=== PATIENT | female | born 1990 | race Caucasian/White ===

== ENCOUNTER 2016-05-26 13:17 | Inpatient (IN) ==
[2016-05-26] MEDS ORDERED: miSOPROStol 25 MCG TABLET VG PRN (13:21)
[2016-05-26] MEDS ORDERED: Ondansetron 4 MG/2 ML VIAL IVP PRN ×2 (13:21→20:47)
[2016-05-26] MEDS ORDERED: *HR* FentaNYL (PF) 100 MCG/2 ML VIAL IVP PRN (13:21)
[2016-05-26] MEDS ORDERED: Naloxone 0.4 MG/ML INJ IVP PRN (13:21)
[2016-05-26] MEDS ORDERED: *HR* Nalbuphine 20 MG/ML AMPUL IVP PRN (13:21)
[2016-05-26] MEDS ORDERED: Famotidine 20 MG/2 ML VIAL IVP PRN (13:21)
[2016-05-26] MEDS ORDERED: Ringers Solution, Lactated 1,000 ML IVC SCH ×2 (13:30→21:00)
[2016-05-26 13:55] LABS: Basophils % 0.2 %; Eosinophils # 0.1 K/mcL (0.0-0.6); Eosinophils % 0.7 %; Hematocrit 36.5 % (35.3-44.9); Hemoglobin 11.2 g/dL (11.5-15.4); Immature Granulocytes % 0.7 % (0-4); Immature Platelets 14.9 % (1.1-6.1); Lymphocytes % 18.7 %; Mean Corpuscular HGB Conc 30.7 g/dL (31.6-35.5); Mean Corpuscular Hemoglobin 23.2 pg (28.0-33.3); Mean Corpuscular Volume 75.6 fL (83.0-100.0); Mean Platelet Volume 12.1 fL (9.4-12.4); Monocytes # 0.8 K/mcL (0.0-1.3); Monocytes % 7.4 %; Neutrophils # 7.8 K/mcL (1.6-8.9); Platelet Count 205 K/mcL (140-400); Red Blood Count 4.83 M/mcL (3.82-4.97); Red Cell Distribution Width 16.9 % (11.5-14.5); Segmented Neutrophils % 72.3 %
--- NOTE | 2016-05-26 14:14 | OB/GYN History & Physical ---
Date of Encounter: 05/26/16 Time of Encounter: 14:05 Assessment and Plan (1) 40 weeks gestation of Current visit: Yes Status: Acute (2) Oligohydramnios in morales in third trimester Current visit: Yes Status: Acute induction of labor with cytotec Continuous monitoring, GBS negative Epidural as requested anticipate History of Present Illness Chief complaint: induction of labor HPI: Ms. Ramirez is a 25 year old female here for induction of labor due to oligohydramnios CAMILA 5. complicated by obesity and smoking until 5th month of . No complaints good movement, denies vaginal bleeding or leaking of fluid. Pt planning epidural, Family is here as support system. Labs: A positive, GBS negative, Rubella non immune, all other serologies negative. Past Med Surg Social Fam HX - Past Medical History Medical history: no medical history Psychiatric history: no psych history - Social History Smoking Status: Current every day smoker Alcohol use: none Drug use: none - Family History Father Adopted: [place]: Brain Living Status: Still Living Hx Family Cardiac Disorders: No Hx Family Respiratory Disorders: No Hx Family Cancer: No Hx Family GI Disorders: No Hx Family Genitourinary Disorders: No Hx Family Endocrine Disorder: No Hx Family Musculoskeletal Disorders: No Hx Family Neuromuscular Disorders: No Hx Family Neurologic Disorders: No Hx Family HEENT Disorders: No Hx Family Autoimmune Disorders: No Hx Family Reproductive Disorders: No Hx Family Psychosocial Disorders: No Hx Family Medical Disorders: No Obstetrical History - Pregnancies : 1 Para: 0 Term: 0 : 0 Ab's: 0 Livin Medications and Allergies Pnv19/Iron Bd Hc,S-P/Folic/Om3 [Pr 400 EC Combo Pack] 1 each PO DAILY #30 cmbpkgdrcp 09/18/15 [Rx] Allergies No Known Allergies Allergy (Verified 09/18/15 12:12) Review of System OB All systems PM: reviewed and no additional remarkable complaints except as stated Exam - Constitutional Constitutional: no acute distress, morbidly obese - Neck Neck exam: full ROM - Lungs Respiratory exam: CTAB - Cardiovascular Cardiovascular exam: RRR, +S1, +S2 - Abdomen Abdomen: Present: bowel sounds normal, gravid, non tender - Uterus Uterus exam: Present: normal size Results Result Diagrams: 05/26/16 13:45 Abnormal lab results Hgb 11.2 g/dL (11.5-15.4) L 05/26/16 13:45 MCV 75.6 fL (83.0-100.0) L 05/26/16 13:45 MCH 23.2 pg (28.0-33.3) L 05/26/16 13:45 MCHC 30.7 g/dL (31.6-35.5) L 05/26/16 13:45 RDW 16.9 % (11.5-14.5) H 05/26/16 13:45 Immature Plt Fraction 14.9 % (1.1-6.1) H 05/26/16 13:45 All other labs normal. - VTE Reasons for not Prescribing Prophylaxis: Medical contraindication
--- NOTE | 2016-05-26 17:51 | OB Labor Progress Note ---
Date of Encounter: 05/26/16 Time of Encounter: 17:45 Labor Progress Note - Subjective Subjective: went into patient room because had a prolonged decel for up to 6 mins at least, she was flipped from side to side to side, fluids started and just as I was about to call a C section , the tracing recovered. I counseled the patient that if she has a decel again, I will be doing a C section and explained why that was necessary. She agreed. Cont monitoring strip.
[2016-05-26] MEDS ORDERED: Metoclopramide 10 MG/2 ML VIAL IVP ONE (17:58)
[2016-05-26] MEDS ORDERED: EPHEDrine 50 MG/ML VIAL ONE (18:03)
[2016-05-26] MEDS ORDERED: *HR* Morphine Sulfate/PF 5 MG/10 ML AMPUL ONE (18:03)
[2016-05-26] MEDS ORDERED: *HR* FentaNYL (PF) 100 MCG/2 ML VIAL ONE (18:03)
[2016-05-26] MEDS ORDERED: Water for inj. (sterile) 10 ML IV ONE (18:05)
[2016-05-26] MEDS ORDERED: *HR* Oxytocin 10 UNIT/ML VIAL IM ONE (18:10)
--- NOTE | 2016-05-26 18:16 | Anesthesia Evaluation PreOp ---
Date of Encounter: 05/26/16 Time of Encounter: 17:45 - Past History Planned Operation: c section Cardiac History: Denies any Significant Hx Pulmonary History: Former smoker, Asthma (uses rescue inhaler infrequently. Quit smoking when learned of .) ACCOUNTANT TAX History: Denies Any Significant HX Other Medical History: GERD, Other (morbid obesity.) Anesthesia History: No Prior Anesthetic Complications, Past Anesthesia ( tonsillectomy at age 14.) : Yes Alcohol Use: none Drug use: none Medications and Allergies Pnv19/Iron Bd Hc,S-P/Folic/Om3 [Pr 400 EC Combo Pack] 1 each PO DAILY #30 cmbpkgdrcp 09/18/15 [Rx] Allergies No Known Allergies Allergy (Verified 09/18/15 12:12) - Meds/Allergy Pre-op Review Medications Reviewed: Yes Allergies Reviewed: Yes Beta Blockers on Current Med List: No Anesthesia Results - Labs 05/26/16 13:45 Anesthesia Exam O2 Sat Height 1.6 m Height 1.6 m Weight 132.8 kg Weight 132.8 kg vss Height: 5'3" Weight: 133 kg NPO (# of Hours): 6. ate full meal at noon. Pain Scale: 3 Pain Scale Used: Numeric (1 - 10) - HEENT Pupil (Motor): Pupils equal Mallampati: III Teeth: Normal Oral Opening: Greater than 3 - ACCOUNTANT TAX LOC: Oriented ACCOUNTANT TAX Motor: Normal RUE, Normal LUE, Normal RLE, Normal LLE, Normal Face ACCOUNTANT TAX Sensory: Normal: RUE, LUE, RLE, LLE, Face - Cardiac Rhythm: Regular - Pulmonary Breath Sounds: bilateral Clear Respiratory Effort: Symmetrical Anesthesia Assess/Plan ASA Score: 3 Modified Sally Scale for Level of Consciousness: Cooperative, oriented, and tranquil Anesthetic Plan: Regional Monitoring Plan: Standard Monitors Recovery Plan: PACU
[2016-05-26] MEDS ORDERED: Oxytocin 20 units/ LR 1000 mL 20 UNIT/1,000 ML BAG IVC ONE (18:29)
[2016-05-26] MEDS ORDERED: *HR* Promethazine 25 MG/ML VIAL IVP PRN (19:30)
[2016-05-26] MEDS ORDERED: Ondansetron 4 MG/2 ML VIAL IVP ONE (19:30)
[2016-05-26] MEDS ORDERED: Acetaminophen IV 1,000 MG/100 ML INFUS..BTL IVPB ONE (19:32)
--- NOTE | 2016-05-26 20:17 | OB/GYN Procedure Note ---
Section - Date of procedure: 05/26/16 Preop diagnosis: category 2 FHT tracing Post-op diagnosis: same Procedure: primary low transverse Surgeon: Wendy Sterling Estimated blood loss (cc): 300 Anesthesia Type: Spinal section complications: none Disposition: L&D Recovery Room Specimens: Placenta - (s) A Infant Delivery Date: 05/26/16 Delivery Time: 19:15 Presentation: vertex Gender: Male Viability: Viable Pounds: 7 Ounces: 0 Gram Weight: 3.185 kg at 1 minute: 8 at 5 minutes: 9 Shoulder Dystocia: not encountered - Narrative Narrative: Patient was brought to the operating room and given satisfactory spinal anesthesia. The abdomen was prepped and draped in a sterile fashion. A Pfannenstiel incision was made and carried sharply down to the level of fascia. The fascia was incised transversely. The fascia was dissected away from the underlying rectus muscles. With sharp and blunt dissection, rectus muscles were divided in midline. The perineum was entered bluntly. The incision was carried vertically with scissors. Transverse incision was made across the bladder peritoneum. The bladder was dissected away from the underlying lower uterine segment. Bladder retractor was placed to protect the bladder. The lower uterine segment was entered sharply with a scalpel. Incision was manually extended. Meconium stained amniotic fluid was encountered. The 's head was pulled up and delivered easily as were the shoulders and body. The mouth and oropharynx were suctioned. The cord was clamped and cut. The was passed off to the waiting systems technologist in satisfactory condition. APGARS 8/9. Placenta was extracted completely and found to be intact. Uterus was explored and found to be empty. Uterus was delivered through the abdominal incision and massaged vigorously. Intravenous Pitocin was administered. Clamps were placed about the margins of the uterine incision, which was closed primarily with a running locking stitch of 0 Vicryl with adequate hemostasis. Secondary running locking stitch was placed for extra strength to the wound. Cul-de-sac and gutters were suctioned vigorously. The uterus was returned to its proper anatomic position in the abdomen. The fascia was closed with a simple running stitch of 0 vicryl. The skin was closed with running subcuticular of 4-0 vicryl. Uterus was expressed of its contents. Patient was brought to the recovery room in satisfactory condition. There were no complications. There was 300 cc of blood loss. All sponge, needle, and instrument counts were reported to be correct.
[2016-05-26] MEDS ORDERED: Simethicone 80 MG TAB.CHEW PO PRN (20:47)
[2016-05-26] MEDS ORDERED: Metoclopramide 10 MG/2 ML VIAL IVP PRN (20:47)
[2016-05-26] MEDS ORDERED: Sennosides 8.6 MG TABLET PO PRN (20:47)
[2016-05-26] MEDS ORDERED: Oxytocin 20 units/ LR 1000 mL 20 UNIT/1,000 ML BAG IV SCH (21:00)
--- NOTE | 2016-05-26 21:15 | Anesthesia Evaluation Post Op ---
Date of Encounter: 05/26/16 Time of Encounter: 21:08 - Vital Signs Vital Signs: vss - Lungs Lungs: Clear Ascult./Percussion - Airway Airway: Non-obstructed - Cardiovascular Regular Rate - Mental Status Mental Status: Alert & Oriented, Answers Appropriately - Pain Pain Scale: 0 Pain Scale used: Numeric (1 - 10) - Nausea Vomiting Nausea Vomiting: Not Present - Hydration Hydration: NPO, Arango catheter - Discharge PostOp Status: Transfer Patient to floor
[2016-05-26] MEDS ORDERED: *HR* Morphine 2 MG/ML SYRINGE IVP PRN (21:16)
[2016-05-26] MEDS ORDERED: *HR* HYDROmorphone (PF) 1 MG/ML SYRINGE IVP PRN (21:16)
[2016-05-26] MEDS: Ibuprofen 600 MG TABLET PO PRN (23:10)
[2016-05-27] MEDS: *HR* OxyCODONE/APAP 5/325 TABLET PO PRN ×3 (04:53→22:48)
[2016-05-27 05:06] LABS: Basophils % 0.2 %; Eosinophils % 0.7 %; Hemoglobin 10.1 g/dL (11.5-15.4)
[2016-05-27 05:07] LABS: Eosinophils # 0.1 K/mcL (0.0-0.6); Hematocrit 32.9 % (35.3-44.9); Immature Platelets 14.4 % (1.1-6.1); Mean Corpuscular HGB Conc 30.7 g/dL (31.6-35.5); Mean Corpuscular Hemoglobin 23.1 pg (28.0-33.3); Mean Corpuscular Volume 75.3 fL (83.0-100.0); Mean Platelet Volume 12.8 fL (9.4-12.4); Platelet Count 176 K/mcL (140-400); Red Blood Count 4.37 M/mcL (3.82-4.97); Red Cell Distribution Width 16.9 % (11.5-14.5); Segmented Neutrophils % 66.9 %
[2016-05-27 05:08] LABS: Immature Granulocytes % 0.6 % (0-4); Lymphocytes # 2.3 K/mcL (0.6-4.6); Lymphocytes % 24.8 %; Monocytes # 0.6 K/mcL (0.0-1.3); Monocytes % 6.8 %; Neutrophils # 6.3 K/mcL (1.6-8.9)
[2016-05-27 05:24] LABS: Platelet Estimate Normal (Normal)
--- NOTE | 2016-05-27 08:28 | OB/GYN Progress Note ---
Date of Encounter: 05/27/16 Time of Encounter: 08:25 - Assessment and Plan (1) 40 weeks gestation of Current Visit: Yes Status: Acute (2) Oligohydramnios in morales in third trimester Current Visit: Yes Status: Resolved induction of labor with cytotec Continuous monitoring, GBS negative Epidural as requested anticipate (3) delivery delivered Current Visit: Yes Status: Acute stable in . Continue current management and progress to milestones. Subjective - Subjective Interval history: Pt states feel well. Pain well managed on po pain medication. Pt has been up and standing by bedside, - flatus, tolerating po diet. . Patient reports: appetite normal, pain well controlled, ambulating normally [place]: doing well Objective - Vital Signs Latest vital signs: Vital Signs Temp Pulse Pulse Resp BP Pulse Ox 05/27/16 04:47 98.2 F 73 16 126/76 98 05/27/16 01:45 98.0 F 90 16 125/65 98 05/27/16 00:40 98.2 F 70 16 115/75 98 05/26/16 23:30 98.0 F 61 16 134/63 97 05/26/16 22:47 97.8 F 66 66 16 132/69 98 05/26/16 22:30 98.2 F 56 16 134/84 100 Intake and Output 05/26/16 05/27/16 05/27/16 23:59 07:59 15:59 Intake Total 0 / 0 Output Total 600 / 600 Balance -600 / -600 Intake: Oral 0 / 0 Output: Catheter 600 / 600 Other: Weight 130 kg 128.6 kg Patient Weight 05/27/16 23:59 Weight 128.6 kg - Exam Lungs: bilateral: normal Chest: Normal S1, Normal S2 Extremities: Present: normal Abdomen: Present: normal appearance, soft Incision: Present: dressed Uterus: Present: firm - Labs Labs: Laboratory Results - last 24 hr 05/26/16 05/27/16 13:45 04:40 WBC 10.7 9.4 RBC 4.83 4.37 Hgb 11.2 L 10.1 L Hct 36.5 32.9 L MCV 75.6 L 75.3 L MCH 23.2 L 23.1 L MCHC 30.7 L 30.7 L RDW 16.9 H 16.9 H Plt Count 205 176 MPV 12.1 12.8 H Immature Gran % 0.7 0.6 Seg Neutrophils % 72.3 66.9 Lymphocytes % 18.7 24.8 Monocytes % 7.4 6.8 Eosinophils % 0.7 0.7 Basophils % 0.2 0.2 Neutrophils # 7.8 6.3 Lymphocytes # 2.0 2.3 Monocytes # 0.8 0.6 Eosinophils # 0.1 0.1 Basophils # 0.0 0.0 Platelet Estimate Normal Immature Plt Fraction 14.9 H 14.4 H
[2016-05-27] MEDS: Ibuprofen 600 MG TABLET PO PRN ×2 (09:48→18:04)
[2016-05-27] MEDS: Prenatal Vit/FA 1 EACH TABLET PO SCH (09:48)
[2016-05-28] MEDS: Ibuprofen 600 MG TABLET PO PRN ×2 (04:02→13:27)
[2016-05-28] MEDS: *HR* OxyCODONE/APAP 5/325 TABLET PO PRN (08:26)
[2016-05-28] MEDS: Prenatal Vit/FA 1 EACH TABLET PO SCH (08:26)
[2016-05-28] MEDS ORDERED: Measles/Mumps/Rubella Vacc 0.5 ML VIAL SQ ONE (08:40)
[2016-05-28 08:55] VITALS: BP 138/85
--- NOTE | 2016-05-28 09:11 | Discharge Summary ---
Date of Encounter: 05/28/16 Time of Encounter: 09:08 - Discharge Diagnosis (1) delivery delivered Priority: Primary Status: Acute Comments: Pt meeting post-op milestones. (2) Obesity compl pregn//puerperp Priority: Secondary Status: Chronic Comments: Pt instructed on incision care at length. - Discharge Medications Prescriptions: OxyCODONE/APAP 5/325 [Percocet 5/325 MG] 1 each PO Q4HR PRN #30 tablet PRN Reason: Moderate pain 4-6 Ibuprofen [Motrin] 600 mg PO Q6HR PRN #60 tablet PRN Reason: Cramping Docusate [Colace] 100 mg PO BID #60 capsule Home Medications: Pnv19/Iron Bd Hc,S-P/Folic/Om3 [Pr Reji 400 EC Combo Pack] 1 each PO DAILY #30 [id number] 09/18/15 [Rx] Docusate [Colace] 100 mg PO BID #60 capsule 05/28/16 [Rx] Ibuprofen [Motrin] 600 mg PO Q6HR PRN #60 tablet 05/28/16 [Rx] OxyCODONE/APAP 5/325 [Percocet 5/325 MG] 1 each PO Q4HR PRN #30 tablet 05/28/16 [Rx] Simethicone [Gas-X] 80 mg PO TID PRN #0 tab.chew 05/28/16 [Rx] Allergies/Adverse Reactions: Allergies No Known Allergies Allergy (Verified 09/18/15 12:12) Data Procedures and tests throughout hospitalization: Laboratory Tests 05/26/16 05/27/16 13:45 04:40 WBC 10.7 9.4 RBC 4.83 4.37 Hgb 11.2 L 10.1 L Hct 36.5 32.9 L MCV 75.6 L 75.3 L MCH 23.2 L 23.1 L MCHC 30.7 L 30.7 L RDW 16.9 H 16.9 H Plt Count 205 176 MPV 12.1 12.8 H Immature Gran % 0.7 0.6 Seg Neutrophils % 72.3 66.9 Lymphocytes % 18.7 24.8 Monocytes % 7.4 6.8 Eosinophils % 0.7 0.7 Basophils % 0.2 0.2 Neutrophils # 7.8 6.3 Lymphocytes # 2.0 2.3 Monocytes # 0.8 0.6 Eosinophils # 0.1 0.1 Basophils # 0.0 0.0 Platelet Estimate Normal Immature Plt Fraction 14.9 H 14.4 H Date of admission: 05/26/16 13:17 Primary care physician: PCP NO Discharging clinician: Nicolette Maurer Anticipated date of discharge: 05/28/16 - Patient Status Disposition: Home, Self-Care Condition: Good Functional capacity at discharge: independent ambulation Overall status at discharge: patient is progressing back to baseline - Discharge Instructions Follow Up With: MAXINE,PCP [Primary Care Provider] - Rasheed Klein MD [Partnered Physician] - - Diet and Activity Activity: increase activity as tolerated Diet: advance to your usual diet Hospital Course Reason for admission: induction of labor Delivery: section Episiotomy: none Laceration: none Other procedures: none complications: none Discharge diagnosis: IUP at term delivered baby: male Hospital course: - Date of procedure: 05/26/16 Preop diagnosis: category 2 FHT tracing Post-op diagnosis: same Procedure: primary low transverse Surgeon: Wendy Sterling Estimated blood loss (cc): 300 Anesthesia Type: Spinal section complications: none Disposition: L&D Recovery Room Specimens: Placenta - (s) Infant A Infant Delivery Date: 05/26/16 Infant Delivery Time: 19:15 Presentation: vertex Gender: Male Viability: Viable Pounds: 7 Ounces: 0 Gram Weight: 3.185 kg at 1 minute: 8 at 5 minutes: 9 Shoulder Dystocia: not encountered Time Attestation: Total time spent providing and/or coordinating discharge services: Time Spent: Less than 30 minutes - VTE Reasons for not Prescribing Prophylaxis: Medical contraindication Documentation of Mechanical Device: Intermittent pneumatic compression device Exam - Constitutional Vitals: Temp Pulse Resp BP Pulse Ox 98.2 F 86 16 138/85 99 05/28/16 08:15 05/28/16 08:15 05/28/16 08:15 05/28/16 08:15 05/28/16 08:15 General appearance IM: A&O X 3, morbidly obese, pleasant, no acute distress - Respiratory Respiratory exam: Present: CTAB - Cardiovascular Cardiovascular exam IM: Present: RRR, +S1, +S2 - GI/Abdominal GI/Abdominal exam IM: soft, no peritoneal signs Incision: dry (some mild bruising noted above incision, no s/sx infection), intact - Rectal Rectal exam: deferred - Uterine Tone: Firm - Extremities Exam Extremities exam IM: Present: pedal edema (2+ edema bilaterally, no redness or warmth) - Neurological Exam Neurological exam: normal gait, oriented X3 - Psychiatric Additional comments: reports good mood - Other Additional findings: OARRS reviewed
== END 2016-05-28 13:00 | disposition home or self-care (01) | DRG 540 ==
LOC: 1NENULAB → OBSVTOIN 13:17 → 1NENUOBS 22:58
PROVIDERS: ADMIT Student in an Organized Health Care Education/Training Program; ATTEND Student in an Organized Health Care Education/Training Program

== ENCOUNTER 2017-03-27 19:14 | Inpatient (IN) ==
[2017-03-27 20:08] LABS: Bilirubin,Urine Negative (Negative); Blood,Urine Negative (Negative); Clarity,Urine Clear (Clear); Color,Urine Yellow (Yellow); Glucose,Urine (UA) Normal (Normal); Ketones,Urine Negative (Negative); Leukocyte Esterase,Urine Negative (Negative); Nitrite,Urine Negative (Negative); Protein,Urine Trace mg/dL (Neg-Trace); Specific Gravity,Urine 1.023 (1.010-1.025); Urobilinogen,Urine Normal (Normal)
[2017-03-27 20:10] LABS: Bacteria,Urine Few per hpf (None-Few); Hyaline Casts,Urine None Seen per lpf (None-Few); RBC,Urine 0-3 per hpf (0-3); Squamous Epithelial Cell,Urine Many per lpf (None-Few)
[2017-03-27 20:14] LABS: Amphetamine Screen,Urine Negative ng/mL (Cutoff=1000); Barbiturate Screen,Urine Negative ng/mL (Cutoff=200); Benzodiazepines Screen,Urine Negative ng/mL (Cutoff=200); Cannabinoid Screen,Urine Negative ng/mL (Cutoff = 50); Cocaine Screen,Urine Negative ng/mL (Cutoff= 300); Opiate Screen,Urine Negative ng/mL (Cutoff=300); Phencyclidine Screen,Urine Negative ng/mL (Cutoff=25)
[2017-03-27 20:34] LABS: Hemoglobin 10.9 g/dL (11.5-15.4)
[2017-03-27 20:35] LABS: Basophils % 0.4 %; Eosinophils # 0.2 K/mcL (0.0-0.6); Eosinophils % 2.8 %; Hematocrit 37.1 % (35.3-44.9); Immature Granulocytes % 0.7 % (0-4); Lymphocytes % 24.8 %; Mean Corpuscular HGB Conc 29.4 g/dL (31.6-35.5); Mean Corpuscular Hemoglobin 21.5 pg (28.0-33.3); Mean Platelet Volume 10.5 fL (9.4-12.4); Monocytes # 0.6 K/mcL (0.0-1.3); Monocytes % 7.2 %; Neutrophils # 5.3 K/mcL (1.6-8.9); Platelet Count 275 K/mcL (140-400); Red Blood Count 5.08 M/mcL (3.82-4.97); Red Cell Distribution Width 17.2 % (11.5-14.5); Segmented Neutrophils % 64.1 %
[2017-03-27 20:45] LABS: Acetaminophen < 1.0 mcg/mL (10-30); BUN/Creatinine Ratio 11 (6-26); Blood Urea Nitrogen 8 mg/dL (6-20); Calcium 8.8 mg/dL (8.6-10.3); Carbon Dioxide 24 mEq/L (23-29); Chloride 106 mEq/L (98-107); Ethanol < 10 mg/dL (0-10); Glucose 102 mg/dL (70-105); Osmolality,Calculated 281 (280-300); Potassium 3.9 mEq/L (3.5-5.1); Salicylate < 5.0 mg/dL (15.0-30.0); Sodium 136 mEq/L (136-145); eGFR For African Americans > 60 (> 60); eGFR For Non-African Americans > 60 (> 60)
[2017-03-27 21:04] LABS: Anisocytosis 1+ (Not Present); Hypochromasia Present (Not Present); Platelet Estimate Normal (Normal)
--- NOTE | 2017-03-27 21:30 | Emergency Department Note ---
Disposition Clinical Impression: Suicidal ideation Disposition: Admitted As Inpatient Condition: Good Time of Disposition: 00:29 Psych HPI - General Chief Complaint: ED Psychiatric Symptoms Stated Complaint: SI Time Seen by Provider: 03/27/17 19:50 Source: patient Mode of arrival: ambulatory Limitations: no limitations Nursing Notes Reviewed: Yes Vital Signs Reviewed: Yes - History of Present Illness HPI Narrative: 26-year-old female presents to the emergency department suicidal ideations. Says she has had these thoughts before when she was 17 years old and was going to go to counseling but never did. She does have history of depression but does not take medications. She has not seen a psychiatrist. She said today she got the razor out of a pencil sharp and it was going to cut her wrists but she never did proceed with this. She said this was because she is at wits end with her cousin. Patient otherwise having no complaints she has no medical problems does not take any medications. She is not having any homicidal ideations but she is still having suicidal ideations. She said it should not drink any alcohol or take any illicit drugs. Patient otherwise is having no complaints including chest pain, shortness of breath, headache, blurry vision, fevers, chills, neck pain, back pain, blurry vision, abdominal pain, pain or tingling in any arms or legs, pain with urination, change in bowel movements. - Related Data Previous Rx's Medication Instructions Recorded Pnv19/Iron Bd Hc,S-P/Folic/Om3 [Pr 1 each PO DAILY #30 [id number] 09/18/15 Reji 400 EC Combo Pack] Docusate [Colace] 100 mg PO BID #60 capsule 05/28/16 Ibuprofen [Motrin] 600 mg PO Q6HR PRN #60 tablet 05/28/16 OxyCODONE/APAP 5/325 [Percocet 1 each PO Q4HR PRN #30 tablet 05/28/16 5/325 MG] Simethicone [Gas-X] 80 mg PO TID PRN #0 tab.chew 05/28/16 Allergies Allergy/AdvReac Type Severity Reaction Status Date / Time No Known Allergies Allergy Verified 09/18/15 12:12 Review of Systems: 10 point review of systems done and negative unless otherwise stated in history of present illness. All systems ED: reviewed and negative except as stated. Review of Systems: As Per HPI Past Medical History - Past Medical History Attestation: Yes The following information was validated with the patient. Source: patient Medical history: Reports: no medical history Psychiatric history: Reports: anxiety, depression, prior suicide attempt CONTROL INSPECTOR history: Reports: no CONTROL INSPECTOR history - Social History Smoking Status: Current every day smoker Smokeless Tobacco Status: No Alcohol use: Reports: none Drug use: Reports: none Physical Exam - General Limitations: no limitations General appearance: alert, in no apparent distress - Head Head exam: atraumatic, normocephalic, normal inspection - Eye Eye exam: Present: normal appearance, PERRL, EOMI - ENT ENT exam: normal exam, normal oropharynx, mucous membranes moist - Neck Neck exam: Present: normal inspection - Chest Chest inspection: Present: normal inspection, symmetric chest wall rise - Respiratory Respiratory exam: Present: normal lung sounds bilaterally - Cardiovascular Cardiovascular exam: Present: regular rate, normal rhythm, normal heart sounds - Abdominal Exam Abdominal exam: Present: soft, Non-Tender. Absent: tenderness, distention, guarding, rebound, rigidity - Extremities Exam Extremities exam: Present: normal inspection, full ROM. Absent: tenderness, pedal edema - Expanded Lower Extremity Exam Neurovascular/Tendon exam: Absent: motor deficit, sensory deficit, tendon deficit - Back Exam Back exam: Present: normal inspection, full ROM. Absent: tenderness - Neurological Exam Neurological exam: Present: alert, oriented X3 - Psychiatric Psychiatric exam: Present: depressed - Skin Skin exam: Present: warm, dry, intact, normal color Course Course Narrative: 26-year-old female presents to the emergency department complaining of playing or suicidal ideations. Will do medical examination and then after has been normal we will notify [facility] to see the patient by their psychiatric specialty sales consultant. - Reevaluation(s) Reevaluation #1: All labs came back normal she is medically cleared will contact psychiatry to come evaluate the patient. Time: 21:38 Vital Signs Temperature 98.7 F 03/27/17 19:20 Pulse Rate 108 03/27/17 19:20 Respiratory Rate 20 03/27/17 19:20 Blood Pressure 151/89 03/27/17 19:20 O2 Sat by Pulse Oximetry 100 03/27/17 19:20 Temperature 98.7 F 03/27/17 19:20 Pulse Rate 108 01/19/18 19:20 Respiratory Rate 20 03/27/17 19:20 Blood Pressure 151/89 03/27/17 19:20 O2 Sat by Pulse Oximetry 100 03/27/17 19:20 Oxygen Delivery Oxygen Delivery Room Air Psych - MDM Narrative Medical decision making narrative: 26-year-old female presents to the emergency department complaining of suicidal ideations. She is on any homicidal ideations. Patient was medically cleared with labs. When I saw the patient did recommend admission into their psychiatric unit. Patient was admitted to their psychiatric unit in stable condition. - Lab Data Result diagrams: 03/27/17 20:23 03/27/17 20:23 Lab Results 03/27/17 03/27/17 03/27/17 Range/Units 19:40 19:40 19:40 WBC (4.3-11.1) K/mcL RBC (3.82-4.97) M/mcL Hgb (11.5-15.4) g/dL Hct (35.3-44.9) % MCV (83.0-100.0) fL MCH (28.0-33.3) pg MCHC (31.6-35.5) g/dL RDW (11.5-14.5) % Plt Count (140-400) K/mcL MPV (9.4-12.4) fL Immature Gran % (0-4) % Seg Neutrophils % % Lymphocytes % % Monocytes % % Eosinophils % % Basophils % % Neutrophils # (1.6-8.9) K/mcL Lymphocytes # (0.6-4.6) K/mcL Monocytes # (0.0-1.3) K/mcL Eosinophils # (0.0-0.6) K/mcL Basophils # (0.0-0.2) K/mcL Platelet Estimate (Normal) Hypochromasia (Not Present) Anisocytosis (Not Present) Sodium (136-145) mEq/L Potassium (3.5-5.1) mEq/L Chloride (98-107) mEq/L Carbon Dioxide (23-29) mEq/L BUN (6-20) mg/dL Creatinine (0.60-1.20) mg/dL Est GFR ( Amer) (> 60) Est GFR (Non-Af Amer) (> 60) BUN/Creatinine Ratio (6-26) Glucose (70-105) mg/dL Calculated Osmolality (280-300) Calcium (8.6-10.3) mg/dL Urine Color Yellow (Yellow) Urine Clarity Clear (Clear) Urine pH 7.0 (5.0-8.0) pH Units Ur Specific [place] 1.023 (1.010-1.025) Urine Protein Trace (Neg-Trace) mg/dL Urine Glucose (UA) Normal (Normal) mg/dL Urine Ketones Negative (Negative) mg/dL Urine Blood Negative (Negative) Urine Nitrite Negative (Negative) Urine Bilirubin Negative (Negative) Urine Urobilinogen Normal (Normal) mg/dL Ur Leukocyte Esterase Negative (Negative) Urine Microscopic RBC 0-3 (0-3) per hpf Urine Microscopic WBC 5-15 H (0-3) per hpf Ur Squamous Epith Cells Many H (None-Few) per lpf Urine Bacteria Few (None-Few) per hpf Hyaline Casts None Seen (None-Few) per lpf Urine Test Negative (Negative) Salicylates (15.0-30.0) mg/dL Urine Opiates Screen Negative (Glajsh=320) ng/mL Acetaminophen (10-30) mcg/mL Ur Barbiturates Screen Negative (Oqjoyp=703) ng/mL Ur Phencyclidine Scrn Negative (Cutoff=25) ng/mL Ur Amphetamines Screen Negative (Thuynm=0249) ng/mL U Benzodiazepines Scrn Negative (Hbwmru=830) ng/mL Urine Cocaine Screen Negative (Cutoff= 300) ng/mL U Marijuana (THC) Screen Negative (Cutoff = 50) ng/mL Ethyl Alcohol (0-10) mg/dL 03/27/17 03/27/17 Range/Units 20:23 20:23 WBC 8.2 (4.3-11.1) K/mcL RBC 5.08 H (3.82-4.97) M/mcL Hgb 10.9 L (11.5-15.4) g/dL Hct 37.1 (35.3-44.9) % MCV 73.0 L (83.0-100.0) fL MCH 21.5 L (28.0-33.3) pg MCHC 29.4 L (31.6-35.5) g/dL RDW 17.2 H (11.5-14.5) % Plt Count 275 (140-400) K/mcL MPV 10.5 (9.4-12.4) fL Immature Gran % 0.7 (0-4) % Seg Neutrophils % 64.1 % Lymphocytes % 24.8 % Monocytes % 7.2 % Eosinophils % 2.8 % Basophils % 0.4 % Neutrophils # 5.3 (1.6-8.9) K/mcL Lymphocytes # 2.0 (0.6-4.6) K/mcL Monocytes # 0.6 (0.0-1.3) K/mcL Eosinophils # 0.2 (0.0-0.6) K/mcL Basophils # 0.0 (0.0-0.2) K/mcL Platelet Estimate Normal (Normal) Hypochromasia Present A (Not Present) Anisocytosis 1+ A (Not Present) Sodium 136 (136-145) mEq/L Potassium 3.9 (3.5-5.1) mEq/L Chloride 106 (98-107) mEq/L Carbon Dioxide 24 (23-29) mEq/L BUN 8 (6-20) mg/dL Creatinine 0.73 (0.60-1.20) mg/dL Est GFR ( Amer) > 60 (> 60) Est GFR (Non-Af Amer) > 60 (> 60) BUN/Creatinine Ratio 11 (6-26) Glucose 102 (70-105) mg/dL Calculated Osmolality 281 (280-300) Calcium 8.8 (8.6-10.3) mg/dL Urine Color (Yellow) Urine Clarity (Clear) Urine pH (5.0-8.0) pH Units Ur Specific [place] (1.010-1.025) Urine Protein (Neg-Trace) mg/dL Urine Glucose (UA) (Normal) mg/dL Urine Ketones (Negative) mg/dL Urine Blood (Negative) Urine Nitrite (Negative) Urine Bilirubin (Negative) Urine Urobilinogen (Normal) mg/dL Ur Leukocyte Esterase (Negative) Urine Microscopic RBC (0-3) per hpf Urine Microscopic WBC (0-3) per hpf Ur Squamous Epith Cells (None-Few) per lpf Urine Bacteria (None-Few) per hpf Hyaline Casts (None-Few) per lpf Urine Test (Negative) Salicylates < 5.0 L (15.0-30.0) mg/dL Urine Opiates Screen (Yfchge=226) ng/mL Acetaminophen < 1.0 L (10-30) mcg/mL Ur Barbiturates Screen (Johbvj=731) ng/mL Ur Phencyclidine Scrn (Cutoff=25) ng/mL Ur Amphetamines Screen (Devmbq=5522) ng/mL U Benzodiazepines Scrn (Hgmtpv=223) ng/mL Urine Cocaine Screen (Cutoff= 300) ng/mL U Marijuana (THC) Screen (Cutoff = 50) ng/mL Ethyl Alcohol < 10 (0-10) mg/dL Psychiatric Medical Clearance - Medical Clearance Checklist Medical History: 40 weeks gestation of (Acute) Oligohydramnios in morales in third trimester (Resolved) delivery delivered (Acute) Obesity compl pregn//puerperp (Chronic) Suicidal ideation (Acute) Abdominal pain affecting (Inactive) UTI (urinary tract infection) during (Inactive) No Social History Section defined Current Vitals: Last Vital Signs Temp 98.7 F 03/27/17 19:20 Pulse 108 03/27/17 19:20 Resp 20 03/27/17 19:20 BP 151/89 03/27/17 19:20 Pulse Ox 100 03/27/17 19:20 Psychiatric Lab Panel: Drug Levels and Toxicity 03/27/17 03/27/17 19:40 20:23 Urine Opiates Screen Negative Acetaminophen < 1.0 L Ur Barbiturates Screen Negative Ur Phencyclidine Scrn Negative Ur Amphetamines Screen Negative U Benzodiazepines Scrn Negative Urine Cocaine Screen Negative U Marijuana (THC) Screen Negative Ethyl Alcohol < 10 Abnormal Labs: Abnormal lab results RBC 5.08 M/mcL (3.82-4.97) H 03/27/17 20:23 Hgb 10.9 g/dL (11.5-15.4) L 03/27/17 20:23 MCV 73.0 fL (83.0-100.0) L 03/27/17 20:23 MCH 21.5 pg (28.0-33.3) L 03/27/17 20:23 MCHC 29.4 g/dL (31.6-35.5) L 03/27/17 20:23 RDW 17.2 % (11.5-14.5) H 03/27/17 20:23 Hypochromasia Present (Not Present) A 03/27/17 20:23 Anisocytosis 1+ (Not Present) A 03/27/17 20:23 Urine Microscopic WBC 5-15 per hpf (0-3) H 03/27/17 19:40 Ur Squamous Epith Cells Many per lpf (None-Few) H 03/27/17 19:40 Salicylates < 5.0 mg/dL (15.0-30.0) L 03/27/17 20:23 Acetaminophen < 1.0 mcg/mL (10-30) L 03/27/17 20:23 Attestation Statement - Attestation Attestation: I, Nabeel Oliva MD, personally evaluated this patient and discussed their management with the resident physician. I reviewed the resident's note and agree with the documented findings, medical decision making, and plan of care. 26-year-old female presents to the emergency department with a complaint of suicidal ideations. Patient states she has a history of depression. Tonight she states that she wanted to cut her wrist. She did not actually attempt to cut her wrist. She denies any ingestion. She does admit to continued suicidal ideation. On examination patient is a well-developed morbidly obese female in no acute distress. She is alert and oriented 3. There is no cyanosis or diaphoresis. Breath sounds are clear and equal bilaterally. Heart regular rate and rhythm. Abdomen soft and nontender with normal bowel sounds. No gross focal neurological deficits. Labs reviewed. Patiently medically cleared for psychiatric consultation. [address] psych service consulted to evaluate patient in the emergency department. After evaluation patient is being admitted to the [address] psychiatric unit.
[2017-03-28] MEDS ORDERED: Mag Hydrox/Al Hydrox/Simeth 30 ML UDC PO PRN (00:46)
[2017-03-28] MEDS ORDERED: hydrOXYzine pamoate 25 MG CAPSULE PO PRN (00:46)
[2017-03-28] MEDS ORDERED: *HR* LORazepam 1 MG TABLET PO PRN (00:46)
[2017-03-28] MEDS ORDERED: Acetaminophen 325 MG TABLET PO PRN (00:46)
[2017-03-28] MEDS ORDERED: *HR* LORazepam 2 MG/ML VIAL IM PRN (00:46)
[2017-03-28] MEDS ORDERED: MOM Conc 10 ML UD.LIQ PO PRN (00:46)
[2017-03-28] MEDS ORDERED: traZODone 50 MG TABLET PO PRN (00:46)
[2017-03-28] MEDS ORDERED: Haloperidol Lactate 5 MG/ML VIAL IM PRN (00:46)
--- NOTE | 2017-03-28 10:38 | Psychiatry History & Physical ---
Date of Encounter: 03/28/17 Time of Encounter: 10:28 History of Present Illness Patient Stated Chief Complaint: suicidal ideation Medicare Admission Attestation: For traditional Medicare patients the provided hospital inpatient services are reasonable and necessary and in the case of services not specified as inpatient -only under 42 CFR 419.22 (n), that they are appropriately provided as inpatient services in accordance 42 CFR 412.3. For Critical Access Hospital the patient may reasonably be expected to be discharged or transferred to a hospital within 96 hours after admission to the Critical Access Hospital. Admitted From: Home Plans for Post Hospital Care: Home History of Present Illness: Ms. Ramirez is a 26 year old female who was admitted secondary to SI. Client states she has had SI for years. Thoughts intensified yesterday due to conflict with her cousin. Client has a ten month old son and cousin was criticizing her parenting skills. Client lives with her grandmother, her grandmother's boyfriend, an aunt, a male cousin, and her son. Family life is likely chaotic. Client has a history of cutting behaviors but has not cut in two years. No history of inpatient treatment. No history of outpatient linkage except for one psychiatry appointment when she was 17y/o that she never followed up with. No prior med trials. Willing to take medications now and to be linked with counseling. Presents with characteristics of Borderline Personality Disorder but too early to make that diagnosis. No physical health issues although she is obese. No current substance abuse issues beyond occasional THC. Client states she used to take pain pills recreationally but stopped two years ago. Past Med Surg Social Fam HX - Past Medical History Medical history: no medical history - Past Psychiatric History Psychiatric history: Reports: depression, prior suicide attempt Family psychiatric history: Unknown Family History of Suicide: Unknown - Past Surgical History Surgical History: - Social History Smoking Status: Current every day smoker Smokeless Tobacco Status: No Alcohol use: none Drug use: marijuana - Family History Father Adopted: No Living Status: Still Living Hx Family Cardiac Disorders: No Hx Family Respiratory Disorders: No Hx Family Cancer: No Hx Family GI Disorders: No Hx Family Endocrine Disorder: No Hx Family Neuromuscular Disorders: No Hx Family Neurologic Disorders: No Hx Family HEENT Disorders: No Hx Family Autoimmune Disorders: No Medications & Allergies No Known Home Drugs 03/28/17 [History] 3 Allergy/AdvReac Type Severity Reaction Status Date / Time No Known Allergies Allergy Verified 09/18/15 12:12 Review of Systems Constitutional: Denies: fever, chills, weakness, weight change Eyes: Denies: eye pain, vision change Ears, Nose, Throat: Denies: ear pain, throat pain, dental pain, hearing loss, congestion Cardiovascular: Denies: chest pain, palpitations, dyspnea on exertion Respiratory: Denies: cough, dyspnea, wheezes Gastrointestinal: Denies: abdominal pain, nausea, vomiting, diarrhea, constipation Genitourinary male: Denies: urgency, dysuria, frequency, genital lesions Genitourinary female: Denies: urgency, dysuria, frequency, abnormal menses, dyspareunia Musculoskeletal: Denies: joint swelling, joint pain Integumentary: Denies: rash, lesions, pruritus Neurological: Denies: headache, weakness, numbness, memory loss Endocrine: Denies: fatigue, heat or cold intolerance Hematologic/Lymphatic: Denies: easy bruising, lymphadenopathy Allergic/Immunologic: Denies: urticaria, itchy eyes Mental Status Exam Patient orientation: Yes Person, Yes Time, Yes Place Level of alertness: Alert Patient appearance: Appropriate Behavior: calm, cooperative Psychomotor activity: Normal Eye contact: Maintains Eye Contact Mood description: Depressed Affect description: incongruent with mood Speech pattern: Normal rate, Normal rhythm, Normal tone Speech volume: Normal Thought process: Linear Thought content: Yes Suicidal ideation, No Homicidal ideation, No Overt delusions Perceptual disturbances: No Auditory hallucinations, No Visual hallucinations Attention span: Capable of Focused Attention Memory description: Grossly Intact Patient reliability: Reliable Historian Intelligence estimate: Below Average Judgment: Limited Insight: Partial Exam - HEENT Head exam IM: Present: atraumatic Eye exam IM: Present: EOMI ENT exam IM: Present: mucous membranes moist - Neurological Neurological exam IM: Present: alert, oriented X3 - Respiratory Respiratory exam IM: Present: CTAB - GI/Abdominal GI/Abdominal exam IM: Present: normal bowel sounds - Extremities Extremities exam IM: Present: full ROM - Skin Skin exam IM: Present: normal color Results - Vital Signs Vital signs: Temp Pulse Resp BP Pulse Ox 97.6 F 93 18 134/79 100 03/28/17 09:00 03/28/17 09:00 03/28/17 09:00 03/28/17 09:00 03/27/17 19:20 - Labs Labs: Laboratory Last Values WBC 8.2 K/mcL (4.3-11.1) 03/27/17 20:23 RBC 5.08 M/mcL (3.82-4.97) H 03/27/17 20:23 Hgb 10.9 g/dL (11.5-15.4) L 03/27/17 20:23 Hct 37.1 % (35.3-44.9) 03/27/17 20:23 MCV 73.0 fL (83.0-100.0) L 03/27/17 20: MCH 21.5 pg (28.0-33.3) L 03/27/17 20:23 MCHC 29.4 g/dL (31.6-35.5) L 03/27/17 20: RDW 17.2 % (11.5-14.5) H 03/27/17 20:23 Plt Count 275 K/mcL (140-400) 03/27/17 20:23 MPV 10.5 fL (9.4-12.4) 03/27/17 20: Immature Gran % 0.7 % (0-4) 03/27/17 20:23 Seg Neutrophils % 64.1 % 03/27/17 20:23 Lymphocytes % 24.8 % 03/27/17 20:23 Monocytes % 7.2 % 03/27/17 20:23 Eosinophils % 2.8 % 03/27/17 20:23 Basophils % 0.4 % 03/27/17 20:23 Neutrophils # 5.3 K/mcL (1.6-8.9) 03/27/17 20:23 Lymphocytes # 2.0 K/mcL (0.6-4.6) 03/27/17 20:23 Monocytes # 0.6 K/mcL (0.0-1.3) 03/27/17 20:23 Eosinophils # 0.2 K/mcL (0.0-0.6) 03/27/17 20: Basophils # 0.0 K/mcL (0.0-0.2) 03/27/17 20:23 Platelet Estimate Normal (Normal) 03/27/17 20:23 Hypochromasia Present (Not Present) A 03/27/17 20:23 Anisocytosis 1+ (Not Present) A 03/27/17 20:23 Sodium 136 mEq/L (136-145) 03/27/17 20:23 Potassium 3.9 mEq/L (3.5-5.1) 03/27/17 20:23 Chloride 106 mEq/L (98-107) 03/27/17 20:23 Carbon Dioxide 24 mEq/L (23-29) 03/27/17 20:23 BUN 8 mg/dL (6-20) 03/27/17 20:23 Creatinine 0.73 mg/dL (0.60-1.20) 03/27/17 20:23 Est GFR ( Amer) > 60 (> 60) 03/27/17 20:23 Est GFR (Non-Af Amer) > 60 (> 60) 03/27/17 20:23 BUN/Creatinine Ratio 11 (6-26) 03/27/17 20:23 Glucose 102 mg/dL (70-105) 03/27/17 20:23 Calculated Osmolality 281 (280-300) 03/27/17 20:23 Calcium 8.8 mg/dL (8.6-10.3) 03/27/17 20:23 Urine Color Yellow (Yellow) 03/27/17 19:40 Urine Clarity Clear (Clear) 03/27/17 19:40 Urine pH 7.0 pH Units (5.0-8.0) 03/27/17 19:40 Ur Specific [place] 1.023 (1.010-1.025) 03/27/17 19:40 Urine Protein Trace mg/dL (Neg-Trace) 03/27/17 19:40 Urine Glucose (UA) Normal mg/dL (Normal) 03/27/17 19:40 Urine Ketones Negative mg/dL (Negative) 03/27/17 19:40 Urine Blood Negative (Negative) 03/27/17 19:40 Urine Nitrite Negative (Negative) 03/27/17 19:40 Urine Bilirubin Negative (Negative) 03/27/17 19:40 Urine Urobilinogen Normal mg/dL (Normal) 03/27/17 19:40 Ur Leukocyte Esterase Negative (Negative) 03/27/17 19:40 Urine Microscopic RBC 0-3 per hpf (0-3) 03/27/17 19:40 Urine Microscopic WBC 5-15 per hpf (0-3) H 03/27/17 19:40 Ur Squamous Epith Cells Many per lpf (None-Few) H 03/27/17 19:40 Urine Bacteria Few per hpf (None-Few) 03/27/17 19:40 Hyaline Casts None Seen per lpf (None-Few) 03/27/17 19:40 Urine Test Negative (Negative) 03/27/17 19:40 Salicylates < 5.0 mg/dL (15.0-30.0) L 03/27/17 20:23 Urine Opiates Screen Negative ng/mL (Vdcyui=383) 03/27/17 19:40 Acetaminophen < 1.0 mcg/mL (10-30) L 03/27/17 20:23 Ur Barbiturates Screen Negative ng/mL (Ntdwzv=172) 03/27/17 19:40 Ur Phencyclidine Scrn Negative ng/mL (Cutoff=25) 03/27/17 19:40 Ur Amphetamines Screen Negative ng/mL (Psrmmz=4909) 03/27/17 19:40 U Benzodiazepines Scrn Negative ng/mL (Csoedy=692) 03/27/17 19:40 Urine Cocaine Screen Negative ng/mL (Cutoff= 300) 03/27/17 19:40 U Marijuana (THC) Screen Negative ng/mL (Cutoff = 50) 03/27/17 19:40 Ethyl Alcohol < 10 mg/dL (0-10) 03/27/17 20:23 Assessment and Plan (1) Major depression Current visit: Yes Status: Acute Plan: Admit inpatient for safety and stabilization, Close observation, Suicide Precautions per unit protocol, Encourage participation in unit milieu, Group Therapy, Monitor sleep, Monitor appetite Risks, benefits, side effects, alternatives discussed w/pt: Yes Patient agreeable to treatment: Yes Plans for Post Hospital Care: Home Estimated Length of Stay (Days): 3 Qualifiers: Major depression recurrence: recurrent Active/Remission status: currently active Major depression episode severity: moderate Qualified Code(s): F33.1 - Major depressive disorder, recurrent, moderate
[2017-03-28] MEDS ORDERED: Nicotine 2 MG GUM BC PRN (12:07)
[2017-03-28] MEDS: Nicotine 7 MG PATCH.TD24 TD SCH (14:25)
[2017-03-29] MEDS: Nicotine 7 MG PATCH.TD24 TD SCH (08:57)
--- NOTE | 2017-03-29 11:42 | Psychiatry Progress Note ---
Date of Encounter: 03/29/17 Time of Encounter: 11:39 Subjective Interval history: Client states she is feeling better. Thinks Zoloft is helping. Mood has improved. Denies SI today. Thinks she will feel ready for discharge tomorrow. Attempted to call her family today and reports the line was disconnected. She was able to get ahold of an aunt on her cell phone and she is going to check in and make sure everything is ok. Aunt is also planning to bring client' s son to visit abrahan so staff will be able to see how she is with the child. Still needs linked with services but this can be arranged tomorrow prior to discharge. No behavior problems here in the hospital. Review of Systems Constitutional: Denies: fever, chills, weakness, weight change Eyes: Denies: eye pain, vision change Ears, Nose, Throat: Denies: ear pain, throat pain, dental pain, hearing loss, congestion Cardiovascular: Denies: chest pain, palpitations, dyspnea on exertion Respiratory: Denies: cough, dyspnea, wheezes Gastrointestinal: Denies: abdominal pain, nausea, vomiting, diarrhea, constipation Musculoskeletal: Denies: joint swelling, joint pain Neurological: Denies: headache, weakness, numbness, memory loss Objective: Exam Patient orientation: Yes Person, Yes Time, Yes Place Level of alertness: Alert Patient appearance: Appropriate Behavior: calm, cooperative Psychomotor activity: Normal Eye contact: Maintains Eye Contact Mood description: Depressed Affect description: full range Speech pattern: Normal rate, Normal rhythm, Normal tone Speech volume: Normal Thought process: Linear Thought content: No Suicidal ideation, No Homicidal ideation, No Overt delusions Perceptual disturbances: No Auditory hallucinations, No Visual hallucinations Judgment: Fair Insight: Partial Results - Vital Signs Vital Signs: Temp Pulse Resp BP Pulse Ox 97.5 F L 79 18 131/83 100 03/29/17 09:00 03/29/17 09:00 03/29/17 09:00 03/29/17 09:00 03/27/17 19:20 Assessment and Plan (1) Major depression Current visit: Yes Status: Acute Plan: Continue hospitalization, Close observation, Suicide Precautions per unit protocol, Encourage participation in unit milieu, Group Therapy, Monitor sleep, Monitor appetite Risks, benefits, side effects, alternatives discussed w/pt: Yes Patient agreeable to treatment: Yes Qualifiers: Major depression recurrence: recurrent Active/Remission status: currently active Major depression episode severity: moderate Qualified Code(s): F33.1 - Major depressive disorder, recurrent, moderate Consult Discharge Plan - Plan Referrals: NONE,PCP [Primary Care Provider] -
[2017-03-30] MEDS: Nicotine 7 MG PATCH.TD24 TD SCH (08:26)
[2017-03-30 09:08] VITALS: BP 142/74
--- NOTE | 2017-03-30 10:22 | Discharge Summary ---
Date of Encounter: 03/30/17 Time of Encounter: 10:00 Diagnosis - Discharge Diagnosis (1) Major depression Status: Acute Qualifiers: Major depression recurrence: recurrent Active/Remission status: currently active Major depression episode severity: moderate Qualified Code(s): F33.1 - Major depressive disorder, recurrent, moderate Medications - Discharge Medications Prescriptions: hydrOXYzine pamoate [HydrOXYzine Pamoate] 25 mg PO TID PRN #90 capsule PRN Reason: Anxiety Sertraline [Zoloft] 50 mg PO DAILY #30 tablet traZODone [TraZODone] 50 mg PO HS PRN #30 tablet PRN Reason: Insomnia Sertraline [Zoloft] 50 mg PO DAILY #30 tablet 03/30/17 [Rx] hydrOXYzine pamoate [HydrOXYzine Pamoate] 25 mg PO TID PRN #90 capsule 03/30/17 [Rx] traZODone [TraZODone] 50 mg PO HS PRN #30 tablet 03/30/17 [Rx] 3 Allergy/AdvReac Type Severity Reaction Status Date / Time No Known Allergies Allergy Verified 09/18/15 12:12 Provider Date of admission: 03/28/17 00:19 Primary care physician: PCP NONE Discharging clinician: Wendi Miranda Assessment and Plan - Patient/Caregiver Discharge Instructions Activity: resume usual activities as tolerated Diet: regular diet - Follow up Plan Follow up with: NONE,PCP [Primary Care Provider] - Functional capacity at discharge: independent ambulation Overall status at discharge: Stable Disposition: Home, Self-Care Hospital Course Hospital course: Ms. Ramirez is a 26 year old female with a history of depression and anxiety, possible borderline intellectual functioning who presented to the hospital with increasing depression, agitation, suicidal ideation. Patient may also have a history of borderline personality disorder cluster B traits. She has very little outpatient treatment. She was admitted to for psychiatric stabilization. Patient was incorporated into the therapeutic milieu and offer group and individual as well as recreational therapy. She was also offered psychoeducational materials and supportive therapy. She is placed on suicide precautions and close observation for unit protocol. She was agreeable to starting a trial of medication and was started on Zoloft for mood symptoms. Throughout the course of the hospital stay the patient's mood improved. She admits to a history of chronic suicidal ideation without plan usually. Today she denies suicidal ideations and is hopeful that her mood will improve on the medication. She is interested in engaging in outpatient therapy. She denies auditory or visual hallucinations and does not appear to be responding to internal stimuli. Patient was also given Vistaril for anxiety and trazodone for sleep she as needed. She will return home with her aunt and her 10-month- old son. She is discharged in stable condition. - Time Spent with Patient Total time spent providing and/or coordinating discharge services: Greater than 30 minutes Quality - Multiple Antipsychotics Patient discharged on 2 or more antipsychotic medications: No Procedures - Procedures Procedures: Medication Management, Crisis Stabilization, Supportive Therapy, Group Therapy, Psychoeducational Therapy Mental Status Exam - Mental Status Exam Patient orientation: Yes Person, Yes Time, Yes Place Level of alertness: Alert Patient appearance: Appropriate, Obese Behavior: calm, cooperative Psychomotor activity: Normal Eye contact: Maintains Eye Contact Mood description: Euthymic/stable Affect description: congruent with mood Speech pattern: Normal rate, Normal rhythm, Normal tone Speech Volume: Normal Thought process: [place] Thought Content: No Suicidal ideation, No Homicidal ideation, No Overt delusions Perceptual Disturbances: No Auditory hallucinations, No Visual hallucinations Judgment: Limited Insight: Partial
== END 2017-03-30 13:05 | disposition home or self-care (01) | DRG 751 ==
LOC: EMEROO 19:14 → 1ANU 03-28 00:19
PROVIDERS: ADMIT Psychiatry & Neurology Psychiatry; ATTEND Psychiatry & Neurology Psychiatry